=== PATIENT | male | born 1995 | race African-American/Black ===

== ENCOUNTER 2016-10-29 11:49 | Emergency (ER) | payer BC ==
[~2016-10-29] VITALS: Ht 177.8 cm; Wt 72.6 kg
[~2016-10-29 11:49] MED LIST: IBUPROFEN600 MG ORAL
[2016-10-29 13:08] VITALS: BP 122/58
--- NOTE | 2016-10-29 13:18 | Emergency Room Report ---
History of Present Illness General Chief Complaint: Sore Throat Source: Patient Present Illness HPI 21-year-old male presents emergency department complaining of 10 out of 10 in severity sore throat x2 days. pain is exacerbated with swallowing. denies swelling. Patient reports intermittent fevers and chills. Patient states he' s been taking Tylenol as needed. Patient denies cough patient denies runny nose or nasal congestion. Patient denies ill contacts or recent travel. Patient reports he has a history of strep throat in the past. denies changes in voice, denies neck pain or stiffness. Patient denies nausea or vomiting. Denies CP, Palpitations, LOC, AMS, dizziness, Changes in Vision, Sensation, paresthesias, or a sudden severe headache. Allergies: Coded Allergies: No Known Allergies (Unverified , 11/04/14) Patient History Past Medical History: see triage record Past Surgical History: none Pertinent Family History: none Immunizations: UTD Reviewed Nursing Documentation: PMH: Agreed, PSxH: Agreed Nursing Documentation-PMH Past Medical History: No Stated History Physical Exam Vital Signs Date Time Temp Pulse Resp B/P Pulse Ox O2 Delivery O2 Flow Rate FiO2 10/29/16 12:15 99.7 103 20 122/58 97 Room Air Sp02 EP Interpretation: reviewed, abnormal - tachycardic , mild General Appearance: no apparent distress, alert, GCS 15, non-toxic Head: normocephalic, atraumatic Eyes: bilateral eye PERRL, bilateral eye normal inspection ENT: hearing grossly normal, normal pharynx, no angioedema, normal voice, TMs + canals normal, uvula midline, tonsillar swelling, pharyngeal erythema Neck: full range of motion, no meningismus, no bony tend, supple/symm/no masses Respiratory: chest non-tender, lungs clear, normal breath sounds, speaking full sentences Cardiovascular #1: regular rate, rhythm, no edema Musculoskeletal: back normal, gait/station normal, normal range of motion, non- tender Neurologic: alert, oriented x3, responsive, motor strength/tone normal, sensory intact, speech normal Psychiatric: judgement/insight normal, memory normal, mood/affect normal, no suicidal/homicidal ideation Reflexes: 4+ bicep (R), 4+ bicep (L), 4+ tricep (R), 4+ tricep (L), 4+ knee (R) , 4+ knee (L) Skin: normal color, no rash, warm/dry, well hydrated Lymphatic: no adenopathy Medical Decision Making PA Attestation Dr. De Souza is my supervising Physician whom patient management has been discussed with. Diagnostic Impression: Primary Impression: Pharyngitis, acute Qualified Codes: J02.0 - Streptococcal pharyngitis ER Course 21-year-old male presents emergency department complaining of 10 out of 10 in severity sore throat x2 days. Patient reports intermittent fevers and chills. Patient states he's been taking Tylenol as needed. Patient denies cough patient denies runny nose or nasal congestion. Patient denies ill contacts or recent travel. Patient reports he has a history of strep throat in the past. Patient denies nausea or vomiting. Ddx considered but are not limited to: pharyngitis, strep, [employer]OR [employer], ludwigs angina, URI Vital signs: are WNL, pt. is afebrile H&PE are most consistent with: pharyngitis presumed strep. ORDERS: None required at this time as the diagnosis is clinical ED INTERVENTIONS: -Tylenol 650mg PO- pt. began to have a fever in ED. DISCHARGE: At this time pt. is stable for d/c to home. Will provide printed patient care instructions, and any necessary prescriptions. Care plan and follow up instructions have been discussed with the patient prior to discharge. Last Vital Signs Date Time Temp Pulse Resp B/P Pulse Ox O2 Delivery O2 Flow Rate FiO2 10/29/16 13:08 20 122/58 97 Room Air 10/29/16 12:15 99.7 103 Disposition: HOME, SELF-CARE Condition: Stable Scripts Acetaminophen* (TYLENOL EXTRA STRENGTH*) 500 Mg Tablet 500 MG ORAL Q6H Y for Mild Pain/Temp > 100.5, #30 TAB 0 Refills Prov: Alma Sandoval.AManuel 10/29/16 Lidocaine HCl (Lidocaine HCl Viscous) 100 Ml Solution 20 ML PO QID, #220 ML Prov: Alma Sandoval.AManuel 10/29/16 Amoxicillin* (AMOXIL*) 500 Mg Capsule 500 MG ORAL BID for 10 Days, #20 CAP Prov: Alma Sandoval.AManuel 10/29/16 Referrals: [facility],REFERRING (PCP) Departure Forms: Return to School Return to School On: Oct 31, 2016 School Release Restrictions: No Sports or PE Return to Full Activity: Oct 31, 2016 Patient Instructions: Strep Throat Additional Instructions: Take medications as directed. Follow up with PCP in 3-5 days Return sooner to ED if new symptoms occur, or current symptoms become worse. - Please note that this Emergency Department Report was dictated using [employer] consultant technology software, occasionally this can lead to erroneous entry secondary to interpretation by the dictation equipment. Alma Sandoval Oct 29, 2016 13:17
[2016-10-29] MEDS ORDERED: TYLENOL EXTRA500 MG ORAL (13:19)
[2016-10-29] MEDS ORDERED: LIDOCAINE VISCO20 ML PO (13:19)
[2016-10-29] MEDS ORDERED: AMOXICILLIN500 MG ORAL (13:19)
[2016-10-29 13:38] VITALS: BP 115/71
== END 2016-10-29 13:58 | disposition home or self-care (01) ==
LOC: EMR 12:42
DX: J02.0 Streptococcal pharyngitis (principal)
CPT/HCPCS: 99284

== ENCOUNTER 2016-11-14 12:42 | Emergency (ER) | payer BC ==
[~2016-11-14] VITALS: Ht 177.8 cm; Wt 72.6 kg
[~2016-11-14 12:42] MED LIST changes: +AMOXICILLIN500 MG ORAL; +LIDOCAINE VISCO20 ML PO; +TYLENOL EXTRA500 MG ORAL
[2016-11-14] MEDS ORDERED: NKM (12:50)
--- NOTE | 2016-11-14 13:03 | Emergency Room Report ---
History of Present Illness General Chief Complaint: Sore Throat Source: Patient Present Illness HPI 21-year-old male presents emergency department complaining of continued swelling of his tonsils after being treated for strep throat and finishing antibiotics. Patient denies fevers or chills patient denies pain patient denies difficulty breathing. Denies changes in voice. The patient is complaining that his throat continues to feel swollen. He states that he has a follow-up appointment with his primary care doctor on Thursday. Denies cough, headaches neck pain, rashes, difficulty swallowing, night sweats. Denies CP, Palpitations, LOC, AMS, dizziness, Changes in Vision, Sensation, paresthesias, or a sudden severe headache. Allergies: Coded Allergies: No Known Allergies (Unverified , 11/04/14) Patient History Past Medical History: see triage record Past Surgical History: none Pertinent Family History: none Reviewed Nursing Documentation: PMH: Agreed, PSxH: Agreed Nursing Documentation-PMH Past Medical History: No Stated History Review of Systems All Other Systems: negative except mentioned in HPI Physical Exam Vital Signs Date Time Temp Pulse Resp B/P Pulse Ox O2 Delivery O2 Flow Rate FiO2 11/14/16 12:46 98.2 85 16 111/75 99 Room Air Sp02 EP Interpretation: reviewed, normal General Appearance: no apparent distress, alert, GCS 15, non-toxic Head: normocephalic, atraumatic Eyes: bilateral eye PERRL, bilateral eye normal inspection ENT: hearing grossly normal, normal pharynx, no angioedema, normal voice, TMs + canals normal, uvula midline, moist mucus membranes, tonsillar swelling, other - no pharyngeal erythema, evidence of tonsilith on the left tonsil, no exudates, uvula is midline, normal voice. Neck: full range of motion, thyroid normal, no meningismus, no bony tend, supple/symm/no masses Respiratory: chest non-tender, lungs clear, normal breath sounds, speaking full sentences Cardiovascular #1: regular rate, rhythm, no edema Rectal: deferred Musculoskeletal: back normal, gait/station normal, normal range of motion, non- tender Neurologic: alert, oriented x3, responsive, motor strength/tone normal, sensory intact, speech normal Psychiatric: judgement/insight normal, memory normal, mood/affect normal, no suicidal/homicidal ideation Skin: normal color, no rash, warm/dry, well hydrated Lymphatic: no adenopathy Medical Decision Making PA Attestation Dr. Roland is my supervising Physician whom patient management has been discussed with. Diagnostic Impression: Primary Impression: Tonsillitis ER Course 21-year-old male presents emergency department complaining of continued swelling of his tonsils after being treated for strep throat and finishing antibiotics. Patient denies fevers or chills patient denies pain patient denies difficulty breathing. The patient is complaining that his throat continues to feel swollen. Denies cough, headaches neck pain, rashes, difficulty swallowing, night sweats. pt has appt. with PCP on Thursday. Ddx considered but are not limited to: pharyngitis, strep, [employer] P[employer]ER, ludwigs angina, URI Vital signs: are WNL, pt. is afebrile H&PE are most consistent with: swollen tonsils bilaterally, no evidence of infection, tonsillith noted, no evidence of airway compromise. Uvula is midline no unilateral soft palate swelling, I do not suspect [employer] PICK[employer] TENDER at this time. ORDERS: None required at this time as the diagnosis is clinical ED INTERVENTIONS: -IM Decadron - D/w pt. conservative treatment with anti-inflammatory medications and to keep his appointment with his PCP. may require ENT specialist evaluation if symptoms persist. d/w pt. to return to ED with worsening of symptoms, or new symptoms. DISCHARGE: At this time pt. is stable for d/c to home. Will provide printed patient care instructions, and any necessary prescriptions. Care plan and follow up instructions have been discussed with the patient prior to discharge. Last Vital Signs Date Time Temp Pulse Resp B/P Pulse Ox O2 Delivery O2 Flow Rate FiO2 11/14/16 12:46 98.2 85 16 111/75 99 Room Air Disposition: HOME, SELF-CARE Condition: Stable Scripts Ibuprofen* (MOTRIN*) 400 Mg Tablet 400 MG ORAL THREE TIMES A DAY, #30 TAB 0 Refills Prov: Alma Sandoval 11/14/16 Patient Instructions: Tonsillitis Additional Instructions: Take medications as directed. Follow up with PCP in 3-5 days Return sooner to ED if new symptoms occur, or current symptoms become worse. - Please note that this Emergency Department Report was dictated using [employer] expert technology software, occasionally this can lead to erroneous entry secondary to interpretation by the dictation equipment. Alma Sandoval Nov 14, 2016 13:03
[2016-11-14] MEDS ORDERED: IBUPROFEN400 MG ORAL (13:05)
[2016-11-14] MEDS ORDERED: Dexamethasone 4mg/ml vial IM ONE (13:15)
[2016-11-14 13:23] VITALS: BP 111/75
[2016-11-14 13:28] VITALS: BP 111/75
== END 2016-11-14 13:34 | disposition home or self-care (01) ==
LOC: EMR 13:03
DX: J03.90 Acute tonsillitis, unspecified (principal); J02.9 Acute pharyngitis, unspecified
CPT/HCPCS: 96372; 99283; J1100